=== PATIENT | female | born 1995 | race Caucasian/White ===

== ENCOUNTER 2019-07-30 10:07 | Emergency (ER) | payer OTHER ==
--- NOTE | 2019-07-30 10:19 | UC ---
Abdominal Pain Female HPI - HPI Summary HPI Summary: 23 yo female presents with left pelvic pain. She tells me that for the last 3 days she has had aching and occasional stabbing pain in her left groin. Pain does not change with movement. Pain resolves with rest and time - usually within minutes. She has not taken anything OTC for her discomfort. She is currently taking amoxicillin for tonsillitis. She has an IUD since 11/2018 and has been sexually active almost daily for the last month with the same partner. They do not use condoms as she has an IUD. She called her ART CONSULTANT this morning and they recommended she get an ultrasound for further evaluation. LMP was around 2018 before IUD. She denies fever, chills, n/v/d/c, dysuria, back pain, vaginal bleeding or discharge. No concern for STDs today. No blood in stool. - History of Current Complaint Stated Complaint: ABDOMINAL PAIN Time Seen by Provider: 07/30/19 10:19 Hx Obtained From: Patient Hx Last Menstrual Period: last week in Mar Onset/Duration: Sudden Onset Severity Initially: Mild Severity Currently: Mild Pain Intensity: 3 Pain Scale Used: 0-10 Numeric Allergies/Adverse Reactions: Allergies Allergy/AdvReac Type Severity Reaction Status Date / Time No Known Allergies Allergy Verified 07/30/19 10:27 PMH/Surg Hx/FS Hx/Imm Hx - Additional Past Medical History Additional PMH: Crohn's - Surgical History Surgical History: None - Family History Known Family History: Positive: Other - sister with crohns Negative: Cardiac Disease, Hypertension, Diabetes - Social History Occupation: Student Lives: Dormitory/Roommates Alcohol Use: None Substance Use Type: None Smoking Status (MU): Never Smoked Tobacco Review of Systems All Other Systems Reviewed And Are Negative: No Constitutional: Positive: Negative Skin: Positive: Negative Respiratory: Positive: Negative Cardiovascular: Positive: Negative Gastrointestinal: Positive: Abdominal Pain Genitourinary: Positive: Negative Motor: Positive: Negative Neurovascular: Positive: Negative Musculoskeletal: Positive: Negative Neurological: Positive: Negative Psychological: Positive: Negative Physical Exam - Summary Physical Exam Summary: GENERAL: NAD. WDWN. No pain distress. SKIN: No rashes, sores, lesions, or open wounds. NECK: Supple. Nontender. No lymphadenopathy. CHEST: CTAB. No r/r/w. No accessory muscle use. Breathing comfortably and in no distress. CV: RRR. Pulses intact. Cap refill <2seconds ABDOMEN: Soft. NTTP. No distention or guarding. No organomegaly. No CVA tenderness. Bowel sounds present MSK: Pain not reproduced with hip movement. NEURO: Alert. PSYCH: Age appropriate behavior. Triage Information Reviewed: Yes Vital Signs: Vital Signs: Temp Pulse Resp BP Pulse Ox 98.0 F 85 18 102/90 100 07/30/19 10:21 07/30/19 10:21 07/30/19 10:21 07/30/19 10:21 07/30/19 10:21 Laboratory Tests 07/30/19 10:36 POC Urine Color Y POC Urine Clarity C POC Urine pH 6 POC Ur Specif [place] 1.000 L POC Urine Protein N POC Ur Glucose (UA) N POC Urine Ketones N POC Urine Blood N POC Urine Nitrite N POC Urine Bilirubin N POC Urine Urobilinogen 0 POC U Leukocyte Esteras Trace A Urine negative Vital Signs Reviewed: Yes Diagnostics - Radiology Transvaginal US Radiology Interpretation Completed By: Radiologist US Radiology Interpretation Completed By: Radiologist Summary of Radiographic Findings: Report: Unremarkable 5.6 x 2.9 x 4.7 cm anteverted uterus with 0.8 cm endometrium. IUD appears in appropriate position in the endometrial cavity. Negative for free pelvic fluid. 3.7 x 2.7 x 2.9 cm RIGHT ovary with documented vascular flow is remarkable for small follicles only. 3.0 x 2.0 x 2.4 cm LEFT ovary with documented vascular flow is remarkable for small follicles only. Negative for extra ovarian adnexal region lesions. IMPRESSION: #. Negative pelvic ultrasound. Abd Pain Female Course/Dx - Course Course Of Treatment: UA and as above. Trace leuks, but she is not having any urinary symptoms at this time. US as above. I discussed the need to further evaluate her symptoms with a pelvic exam, but she declined this today stating that she was only concerned about an ectopic or uterine/ovarian pathology. I am unsure the cause of her discomfort. She mentions that her stools have been a little loose once a day due to the amoxicillin, but no diarrhea. She is well appearing, afebrile, and has a normal exam. Low suspicion for crohns flare at this time has she is not having multiple episodes of diarrhea, diffuse abdominal pain, nausea, or fever and she feels generally well. Advised to return or go to the ED if she develops new or worsening symptoms. Pt voiced understanding and agrees with the plan. - Differential Dx/Diagnosis Provider Diagnosis: Left groin pain Discharge ED - Sign-Out/Discharge Documenting (check all that apply): Patient Departure All imaging exams completed and their final reports reviewed: Yes - Discharge Plan Condition: Stable Disposition: HOME Patient Education Materials: Groin Pain (ED) Referrals: No Primary Care Phys,NOPCP [Primary Care Provider] - Additional Instructions: If you develop a fever, shortness of breath, chest pain, new or worsening symptoms - please call your PCP or go to the ED immediately. - Billing Disposition and Condition Condition: STABLE Disposition: Home - Attestation Statements Provider Attestation: I was available for consult. This patient was seen by the JOYCE. The patient was not presented to, seen by, or examined by me. -Doug
[2019-07-30 10:27] VITALS: BP 102/90
== END 2019-07-30 11:45 | disposition home or self-care (01) ==
LOC: EDBD 10:07 → UCCORT 10:07
DX: R10.32 Left lower quadrant pain (principal); K50.90 Crohn's disease, unspecified, without complications
CPT/HCPCS: 76856; 81003; 81025; 87086; 99211; G0463